=== PATIENT | female | born 1995 | race Caucasian/White ===

== ENCOUNTER → 2017-11-14 | Outpatient (CLI) | payer MEDICARE ==
[2017-11-14 15:05] LABS: HEMATOCRIT 30.4 % (36.0-47.0); HEMOGLOBIN 9.8 g/dl (12.0-15.5); MEAN CORPUSCULAR HEMOGLOBIN 29.3 pg (27.0-33.0); MEAN CORPUSCULAR HGB CONC 32.2 g/dl (32.0-36.5); MEAN CORPUSCULAR VOLUME 90.7 fl (80.0-96.0); PLATELET COUNT, AUTOMATED 235 10^3/uL (150-450); RED BLOOD COUNT 3.35 10^6/uL (4.00-5.40); RED CELL DISTRIBUTION WIDTH 12.8 % (11.5-14.5); WHITE BLOOD COUNT 9.5 10^3/uL (4.0-10.0)
[2017-11-14 15:25] LABS: GLUCOSE CHALLENGE TEST 1 HOUR 108 MG/DL (LESS THAN 140)
== END ==
LOC: M LAB 13:05
DX: Z34.82 Encounter for supervision of other normal pregnancy, second trimester (principal); Z36.89 Encounter for other specified antenatal screening
CPT/HCPCS: 82950

== ENCOUNTER → 2018-01-03 | Outpatient (REF) | payer MEDICARE | LOC: M LAB REF 13:24 | DX: Z34.83 Encounter for supervision of other normal pregnancy, third trimester (principal); Z3A.35 35 weeks gestation of pregnancy; Z36.89 Encounter for other specified antenatal screening | CPT/HCPCS: 87186 ==

== ENCOUNTER 2018-01-31 07:53 | Inpatient (IN) | payer MEDICARE ==
[2018-01-31] MEDS ORDERED: LR 1,000 ML IV (08:15)
[2018-01-31] MEDS: LACTATED RINGER'S 1000 ML IV (08:23)
[2018-01-31] MEDS ORDERED: OXYTOCIN 30 UNITS IN 0.9% NaCl 500ML IV BAG (J2590) As Ordered (08:29)
[2018-01-31] MEDS: PENICILLIN G POTASSIUM IV 5 MU in D5W MINI-BAG PLUS 100 ML IV (08:35)
[2018-01-31 08:37] LABS: HEMATOCRIT 34.7 % (36.0-47.0); HEMOGLOBIN 11.4 g/dl (12.0-15.5); MEAN CORPUSCULAR HEMOGLOBIN 29.8 pg (27.0-33.0); MEAN CORPUSCULAR HGB CONC 32.9 g/dl (32.0-36.5); MEAN CORPUSCULAR VOLUME 90.8 fl (80.0-96.0); PLATELET COUNT, AUTOMATED 241 10^3/uL (150-450); RED BLOOD COUNT 3.82 10^6/uL (4.00-5.40); RED CELL DISTRIBUTION WIDTH 14.3 % (11.5-14.5)
[2018-01-31] MEDS: OXYTOCIN DRIP 30 UNITS in APPROPRIATE DILUENT 1 EA IV (09:11)
[2018-01-31 09:29] LABS: CORD GAS ABE V -3.1; CORD GAS O2 SAT V 64.4 %; CORD GAS PCO2 V 30.5 mmHg; CORD GAS PH V 7.435 UNITS; CORD GAS PO2 V 25.1 mmHg; CORD GAS SBC V 21.2 MEQ/L
[2018-01-31] MEDS ORDERED: DOCUSATE SODIUM 100 MG CAP PO (09:30)
[2018-01-31] MEDS ORDERED: METHYLERGONOVINE MALEATE 0.2 MG TAB PO (09:30)
[2018-01-31] MEDS ORDERED: DIBUCAINE 1% OINTMENT 30GM TOP (09:30)
[2018-01-31] MEDS ORDERED: ACETAMINOPHEN 500 MG TAB PO (09:30)
[2018-01-31] MEDS ORDERED: IBUPROFEN 800 MG TAB PO (09:30)
[2018-01-31 09:31] LABS: CORD GAS ABE A -3.3; CORD GAS HCO3 A 21.8 MEQ/L; CORD GAS O2 SAT A < 15.0 %; CORD GAS PCO2 A 39.3 mmHg; CORD GAS PH A 7.362 UNITS; CORD GAS PO2 A 10.4 mmHg
[2018-01-31] MEDS: RHOGAM 300 MCG (1500 IU) INJ (J2790) IM (09:36)
[2018-01-31] MEDS: MEASLES,MUMPS,RUBELLA VACCINE INJ (MMR-II) (90707) SC (09:37)
[2018-01-31] MEDS ORDERED: PENICILLIN G POTASSIUM IV 2.5 MU in APPROPRIATE DILUENT 1 EA IV (12:30)
[2018-02-01] MEDS: PRENATAL VITAMINS CHEWABLE TABLET PO (07:28)
[2018-02-02] MEDS: PRENATAL VITAMINS CHEWABLE TABLET PO (08:18)
== END 2018-02-02 14:25 | disposition home or self-care (01) | DRG 775 ==
LOC: M LDI 07:53 → M OBS 11:30
PROVIDERS: Advanced Practice Midwife
PROC: 10E0XZZ Delivery of Products of Conception, External Approach (ICD-10-PCS; principal; 2018-01-31)
DX: O99.02 Anemia complicating childbirth (principal); Z37.0 Single live birth; O99.820 Streptococcus B carrier state complicating pregnancy; Z3A.39 39 weeks gestation of pregnancy; D64.9 Anemia, unspecified

== ENCOUNTER → 2021-02-05 | Outpatient (CLI) | payer MEDICARE ==
[~2021-02-05] MED LIST: ACET-1439 PO; ACET500C PO; MOTR200T44 PO; PREN1TAB14 PO
== END ==
LOC: M LABSMTC 09:58
PROVIDERS: ATTEND Anesthesiology
DX: Z01.812 Encounter for preprocedural laboratory examination (principal)

== ENCOUNTER 2021-02-10 09:07 | Day surgery (SDC) | payer OTHER ==
[~2021-02-10] VITALS: Ht 170.2 cm; Wt 60.3 kg
[~2021-02-10 09:07] MED LIST changes: +LIDOCAINE 1% MDV 20ML VIAL SQ PRN; +LR 1,000 ML IV ONE
[2021-02-10 09:53] LABS: HEMATOCRIT 39.3 % (36.0-47.0); HEMOGLOBIN 13.1 g/dl (12.0-15.5); MEAN CORPUSCULAR HEMOGLOBIN 29.6 pg (27.0-33.0); MEAN CORPUSCULAR HGB CONC 33.3 g/dl (32.0-36.5); MEAN CORPUSCULAR VOLUME 88.9 fl (80.0-96.0); PLATELET COUNT, AUTOMATED 206 10^3/uL (150-450); RED BLOOD COUNT 4.42 10^6/uL (4.00-5.40); WHITE BLOOD COUNT 3.6 10^3/uL (4.0-10.0)
[2021-02-10] MEDS ORDERED: HYDROmorphone HCL 2 MG/ML 1ML VIAL (J1170) As Ordered ONE (10:57)
[2021-02-10] MEDS ORDERED: fentaNYL 100 MCG/2 ML INJECTION (J3010) As Ordered ONE (10:58)
[2021-02-10] MEDS ORDERED: MIDAZOLAM INJ 2MG/2ML VIAL (J2250 PER 1MG) As Ordered ONE (10:58)
[2021-02-10] MEDS ORDERED: ONDANSETRON 4MG/2ML VIAL As Ordered ONE (10:59)
[2021-02-10] MEDS ORDERED: dexameTHASONE 4 MG/ML 1ML VIAL (J1100 PER 1MG) As Ordered ONE (10:59)
[2021-02-10] MEDS ORDERED: propofoL 200 MG/20 ML VIAL As Ordered ONE (10:59)
[2021-02-10] MEDS ORDERED: KETOROLAC 60MG 2ML VIAL As Ordered ONE (10:59)
[2021-02-10] MEDS ORDERED: ROCURONIUM BROMIDE 50 MG/5 ML VIAL As Ordered ONE (10:59)
[2021-02-10] MEDS ORDERED: LIDOCAINE 2% 100MG/5ML SDV (FOR ANES.) As Ordered ONE (10:59)
[2021-02-10] MEDS ORDERED: METHYLENE BLUE 0.5% (5MG/ML) 10 ML AMP (PROVAYBLUE) As Ordered ONE (11:03)
[2021-02-10] MEDS ORDERED: BUPIVACAINE/EPIN 0.25% 30 ML VIAL As Ordered ONE (11:03)
[2021-02-10] MEDS ORDERED: ACETAMINOPHEN 1000MG 100ML IV BTL (OFIRMEV) (J0131 PER 10MG) As Ordered ONE (12:46)
[2021-02-10] MEDS ORDERED: SUGAMMADEX SODIUM 500 MG/5 ML VIAL (BRIDION) As Ordered ONE (12:56)
[2021-02-10] MEDS ORDERED: GLYCOPYRROLATE INJ 0.2 MG/ML 2 ML VIAL As Ordered ONE (13:00)
[2021-02-10] MEDS ORDERED: LR 1,000 ML IV SCH (13:40)
[2021-02-10] MEDS ORDERED: oxyCODONE 5MG TAB PO PRN (13:40)
[2021-02-10] MEDS ORDERED: fentaNYL 100 MCG/2 ML INJECTION (J3010) IV PRN (13:40)
[2021-02-10] MEDS ORDERED: HYDROMORPHONE HCL 0.5 MG/ 0.5 ML SYRINGE (J1170 PER 1) IV PRN (13:40)
[2021-02-10] MEDS ORDERED: ONDANSETRON 4MG/2ML VIAL IV PRN (13:40)
[2021-02-10 16:50] VITALS: BP 109/67
--- NOTE | 2021-02-12 08:23 | RO ---
OPERATIVE NOTE DATE OF OPERATION: 02/10/2021 INDICATIONS: Sadie is a 25-year-old female with extensive history of left pelvic pain and small right ovarian cyst on ultrasound. After counseling the decision was made for diagnostic laparoscopy, possible lysis of adhesions, possible removal of the ovarian cyst. PREOPERATIVE DIAGNOSES: 1. Left pelvic pain. 2. Right ovarian cyst. POSTOPERATIVE DIAGNOSES: 1. Left pelvic pain. 2. Right ovarian cyst. 3. Endometriotic implant on left pelvic sidewall. Normal appearing ovary. PROCEDURES: 1. Diagnostic laparoscopy. 2. Lysis of adhesions. 3. Ablation of endometriotic implant. SURGEON: Dayton Bradford DO BACKHOE OPERATOR: ANESTHESIA: General. COMPLICATIONS: None. ESTIMATED BLOOD LOSS: Less than 20 mL. DESCRIPTION OF PROCEDURE: After obtaining informed consent the patient was taken to the operating room where general anesthetic was found to be adequate. She was prepped and draped in usual sterile fashion in the dorsal lithotomy position. At this point straight catheter of the bladder was performed for approximately 150 mL of clear urine. A weighted speculum was placed. Rosales uterine manipulator was inserted. Attention was turned to the abdomen where 5 mm infraumbilical incision was made. Using the Veress needle the abdomen was insufflated with CO2 gas to approximately 3.5 liters. We then placed another 5 mm right lateral port. The patient was placed in Trendelenburg. The abdomen and pelvis inspected, normal appearing appendix noted, normal ovaries noted. A small window an endometriotic implant was noted on the left pelvic sidewall as well as adhesion of the bowel to the left pelvic sidewall as well as the lower pelvis. Using the Harmonic scalpel the adhesions were removed. We then ablated the endometriotic implant on the left side. On the right ovary as well as left ovary were inspected and were found to be within normal limits. No other visible endometriotic implant noted. At this point the pelvis was copiously irrigated with normal saline and suctioned out. Good hemostasis was noted. All instruments were removed. The laparoscopic ports were closed with 3-0 Vicryl in subcuticular fashion on the skin. 0.25% Marcaine was placed for postoperative pain. The patient tolerated the procedure well and was transferred to the recovery room in stable condition. cc: [facility]
== END 2021-02-10 16:55 | disposition home or self-care (01) ==
LOC: M SDC 09:07
PROVIDERS: ATTEND Obstetrics & Gynecology
DX: R10.2 Pelvic and perineal pain (principal); N83.291 Other ovarian cyst, right side; F17.218 Nicotine dependence, cigarettes, with other nicotine-induced disorders
CPT/HCPCS: 36415; 58662; 85027; 86850; 86900; 86901; J0131; J1100; J1170; J1885; J2250; J2405; J3010